=== PATIENT | female | born 1945 | race Caucasian/White ===

== ENCOUNTER → 2019-02-25 17:21 | Outpatient (CLI) | payer MEDICARE, SELFPAY ==
--- NOTE | 2019-02-25 | DI.RAD.S_ITS ---
PROCEDURE: XR CHEST 2V INDICATIONS: ACUTE BRONCHITIS, DYSPNEA TECHNIQUE: 2 views of the chest were acquired. COMPARISON: None. FINDINGS: Surgical changes and devices: None. Lungs and pleura: Lungs are clear. No pleural effusions or pneumothorax. Mediastinum: Mediastinal contours are normal. Heart size is normal. Bones and chest wall: No suspicious bony abnormalities. Soft tissues appear unremarkable. IMPRESSION: 1. No acute cardiopulmonary disease. Dictated by: Vish Smith M.D. on 02/26/2019 at 9:22 Approved by: Vish Smith M.D. on 02/26/2019 at 9:24
== END ==
PROVIDERS: Visit Provider Physician Assistant Medical
DX: J20.9 Acute bronchitis, unspecified (principal); R06.09 Other forms of dyspnea
CPT/HCPCS: 71046